=== PATIENT | male | born 1995 | race Two or more races ===

== ENCOUNTER 2020-04-10 12:45 | Emergency (ER) | payer OTHER ==
[~2020-04-10] VITALS: Ht 188 cm; Wt 163.3 kg
[2020-04-10] MEDS ORDERED: ACETAMINOPHEN/CODEINE#3 (300/30mg) TAB PO ONE (15:45)
[2020-04-10 16:00] VITALS: BP 139/89
== END 2020-04-10 16:23 | disposition home or self-care (01) ==
LOC: ER 12:45
DX: S93.401A Sprain of unspecified ligament of right ankle, initial encounter (principal); M25.561 Pain in right knee; M25.562 Pain in left knee; W01.0XXA Fall on same level from slipping, tripping and stumbling without subsequent striking against object, initial encounter; Y93.89 Activity, other specified; Y92.89 Other specified places as the place of occurrence of the external cause; Y99.8 Other external cause status
CPT/HCPCS: 73562; 73610; 73700